=== PATIENT | male | born 1985 | race Caucasian/White ===

== ENCOUNTER 2016-12-12 10:42 | Emergency (ER) | payer MEDICAID ==
[~2016-12-12] VITALS: Ht 185.4 cm; Wt 72.1 kg
[2016-12-12] MEDS ORDERED: FUROSEMIDE 40 MG/4 ML VIAL ONE (11:11)
[2016-12-12 12:37] VITALS: BP 124/75
[2016-12-12] MEDS ORDERED: FLUORESCEIN SOD 1 MG TEST STRIP RIGHTEYE ONE (13:45)
[2016-12-12] MEDS ORDERED: PROPARACAINE HCL 0.5% OPTH(EYE) SOL 15ML OP ONE (13:45)
== END 2016-12-12 15:47 | disposition home or self-care (01) ==
LOC: ER 10:42
DX: S05.01XA Injury of conjunctiva and corneal abrasion without foreign body, right eye, initial encounter (principal); Z88.1 Allergy status to other antibiotic agents; X58.XXXA Exposure to other specified factors, initial encounter; Y93.89 Activity, other specified; Y92.89 Other specified places as the place of occurrence of the external cause; Y99.8 Other external cause status
CPT/HCPCS: 70480; 99284; J1940

== ENCOUNTER 2018-05-14 11:10 | Emergency (ER) | payer MEDICAID ==
[~2018-05-14] VITALS: Ht 182.9 cm; Wt 72.6 kg
[2018-05-14 11:17] VITALS: BP 129/79
[2018-05-14] MEDS ORDERED: BACITRACIN TOP OINT 1 UD PKG TOP ONE (13:00)
[2018-05-14] MEDS ORDERED: LIDOCAINE 1% (LOCAL ANESTH.) PF 5ml SDV ID ONE (13:00)
[2018-05-14] MEDS ORDERED: LIDOCAINE 1%HCL (LOCAL ANESTH) 10 ML MDV ONE (13:08)
== END 2018-05-14 13:57 | disposition home or self-care (01) ==
LOC: EDBD 11:10 → ER 11:10
DX: S01.511A Laceration without foreign body of lip, initial encounter (principal); Z88.1 Allergy status to other antibiotic agents; X99.8XXA Assault by other sharp object, initial encounter; Y93.89 Activity, other specified; Y92.89 Other specified places as the place of occurrence of the external cause; Y99.8 Other external cause status
CPT/HCPCS: 12011; 99283; J2001